=== PATIENT | female | born 1995 | race Hispanic/Latino ===

== ENCOUNTER 2016-06-05 11:20 | Inpatient (IN) | payer MEDICAID ==
[~2016-06-05] VITALS: Ht 148.6 cm; Wt 83.0 kg
[2016-06-05] MEDS ORDERED: Sodium Chloride LOK Flush 10 mL Syringe IVFLUSH PRN (13:25)
[2016-06-05] MEDS ORDERED: fentaNYL-PF 50 mCg/mL 2 mL Inj IVPUSH PRN (13:25)
[2016-06-05] MEDS ORDERED: Oxytocin 30 Units/500 mL LR 30 UNITS in IV Premix 1 EACH IV PRN (13:25)
[2016-06-05] MEDS ORDERED: Methylergonovine 0.2 mg/mL Inj IM PRN ×3 (13:25→21:55)
[2016-06-05] MEDS ORDERED: Hemorrhage Kit, Post Partum XX ONE ×3 (13:25→21:55)
[2016-06-05] MEDS ORDERED: Oxytocin 10 Unit/mL Inj IM PRN ×3 (13:25→21:55)
[2016-06-05] MEDS ORDERED: Lactated Ringer's 1,000 ML IV PRN (13:25)
[2016-06-05] MEDS ORDERED: Carboprost 250 mCg/mL Inj IM PRN ×3 (13:25→21:55)
--- NOTE | 2016-06-05 14:10 | HP ---
[address] [address] HISTORY AND PHYSICAL PATIENT: SAMANTHA PATRICK : 1995 MR#: [id number] ADMIT: 06/05/2016 JOB ID: [id number] CHIEF COMPLAINT: Contractions. HISTORY OF PRESENTING ILLNESS: This is a 21 years old, 2, para 1-0-0-1, at 38 weeks and 5 days based on expected date of delivery of June 14, 2016, based on last menstrual period and consistent with nine weeks five days ultrasound. Patient complicated with: 1. prior history of primary low transverse section for nonreassuring heart tones and failure to progress in 2010. 2. marginal cord insertion. 3. GERD. Patient presented to [facility] with complaint of contractions. Cervix found to be 2 cm, 75%, -2 station, intact. Previous exam yesterday, June 04, 2016, cervix was 1 cm, 50%, and -3. After reassessment and 1 hour of observation in the triage room, cervix was 2 cm, 80%, and -2. The patient was breathing through contractions. Patient denies loss of fluid. History of light vaginal bleeding when wiping. PAST GYNECOLOGIC HISTORY: Menarche at age 10. Regular menstrual cycles. Last Pap smear December 16, 2015, within normal limits. Denies history of abnormal Pap smears or STD. GC and chlamydia screen negative on December 16, 2015. PAST OBSTETRIC HISTORY: First was in 2010. Primary low transverse section at 40 weeks for failure to progress and nonreassuring heart tones. Weight 7 pounds 8 ounces. PAST MEDICAL HISTORY: Noncontributory. Patient denies history of asthma or hypertension. PAST SURGICAL HISTORY: One delivery in 2010. FAMILY HISTORY: Mother is healthy. Father has diabetes. Brother healthy. Sisters healthy. Twins positive history in aunt. Denies history of congenital or mental anomalies. MEDICATIONS: vitamins. ALLERGIES: No known drug allergies. SOCIAL: Denies alcohol, smoking, or illicit drug abuse. REVIEW OF SYSTEM: An 11-point review of system is negative except for the items mentioned in the history of presenting illness. PHYSICAL EXAMINATION: Blood pressure 136/76, heart rate 85, respiratory rate 18, temperature 36.7. General: Alert, oriented to time, place and person. HEAD: Normocephalic, atraumatic. Neck: Supple. Chest: Equal air entry bilaterally. No added sounds. Cardiovascular: RRR, S1 plus S2 plus zero. Abdomen: Gravid. No tenderness. Estimated weight 7-1/2 pounds. Cervical exam by triage room nurse at 1255 was 2, 80%, -2. Lower extremities: +1 edema bilaterally. LABORATORIES: labs, O positive, rubella immune, RPR nonreactive, hepatitis B surface antigen nonreactive, HIV nonreactive. Antibody screening negative. Hematocrit 41% at 24 weeks. screening negative. Pap smear within normal limits on December 16, 2015. Gonorrhea and chlamydia screen negative on December 16, 2015. Group B strep negative on May 22, 2016. Diabetes screening negative at 24 weeks, was 97. IMAGING: Ultrasound on January 23, 2016, was 20 weeks and 5 days. Anatomy within normal limits. Anterior placenta with no previa. Cord insertion eccentric, marginal. Ultrasound on November 10, 2015, was nine weeks and five days with an ALMAZ of June 09, 2016, consistent with last menstrual ALMAZ of June 14, 2016. Final ALMAZ is June 14, 2016. Growth ultrasound done June 04, 2016, growth at 20th percentile. Estimated weight 3185 g. Vertex presentation. Placenta position anterior without previa. ELIZA 7.3-8 cm. ASSESSMENT: This is a 21 years old, 2, para 1-0-0-1, at 38 weeks and 5 days based on estimated due date of June 14, 2016, based on last menstrual period consistent with nine week ultrasound. 1. Active labor. 2. History of previous low transverse section. 3. Desires trial of labor after section. Risks, benefits and alternatives of trial of labor after section versus elective repeat section were discussed with the patient in detail. Calculated success rate of vaginal after is 38%. Risks included, but not limited to, uterine rupture, increased risk of infection and bleeding with trial of labor after section with low calculated success rate explained. The patient desires trial of labor after section. Informed consent was signed. All questions were answered. Admission orders and labs were placed. Will continue to monitor. MTDD
[2016-06-05 14:23] LABS: Mean Corpuscular Hemoglobin 31.2 pg (27.0-35.0); Mean Corpuscular Volume 88.9 fL (81-100)
[2016-06-05] MEDS ORDERED: Lactated Ringer's 500 ML IV ONE (16:18)
[2016-06-05] MEDS ORDERED: Lactated Ringer's 1,000 ML IV SCH ×2 (16:18→21:49)
--- NOTE | 2016-06-05 16:18 | PCM.HPANE ---
Patient Data Surgeon Admitting Provider:Ines Buchanan MD Attending Provider:Ines Buchanan MD Primary Care Physician:Birgit Wilburn MD Other Provider:Braxton Baldersa Anesthesia Reason for Visit Pre Term Labor PRE TERM LABOR Ht/WT & BMI Body Mass Index Allergies Coded Allergies: Penicillins (Verified Allergy, Unknown, pt reports rash, 03/06/11) Medications Hypertension Medication: No Home Meds Incl Beta Erin: No History Hx of Heart Problems?: No Hx of Respiratory Problem?: No Hx Neurologic Problems?: No Hx of GI Problems?: Yes Gastrointestinal History: Positive for:: Heartburn Female Hx: Positive for:: Currently Hx Surgeries?: No Smoking Status: Never Smoker Stop/Bang Treated for Sleep Apnea?: No Do You Have a CPAP Machine?: No WILMA Risk Assessment: Low Risk, <3 Yes Risk Assessment Category Category 1A: Patient has history of documented sleep apnea, and HAS NOT received any narcotic, sedative or anesthesia administration during this stay. Category 1B: Patient has history of documented sleep apnea, and HAS received any narcotic , sedative or anesthesia administration during this stay Category 2: Patient has SUSPECTED Obstructive Sleep Apnea, and HAS received any narcotic , sedative or anesthesia administration during this stay. Category 3: Patient has SUSPECTED Obstructive Sleep Apnea and HAS NOT received narcotic, sedative or anesthesia administration during this stay. Category 4: Outpatient in Procedural Areas with known sleep apnea or who screen positive for High Risk via the STOP/BANG questionnaire. Exam Exam General Appearance: Oriented X3 HEENT/AIRWAY: MP 2 Lungs: Normal Air Movement Heart: Regular Rate/Rhythm Meds/Labs/Diagnostics Labs Test 06/05/16 14:10 06/05/16 14:40 White Blood Count 10.6th/mm3 (3.8-10.1) Red Blood Count 4.87mil/mm3 (3.90-5.20) Hemoglobin 15.2g/dL (12.0-15.6) Hematocrit 43.3% (35.0-46.0) Mean Corpuscular Volume 88.9fL (81-100) Mean Corpuscular Hemoglobin 31.2pg (27.0-35.0) Mean Corpuscular Hemoglobin Concent 35.1% (32.0-37.0) Red Cell Distribution Width 14.5% (12.3-15.4) Platelet Count 297bil/L (150-400) Blood Urea Nitrogen 11mg/dL (6-20) Creatinine 0.48mg/dL (0.57-1.00) Uric Acid 6.6mg/dL (2.6-7.2) Aspartate Amino Transf (AST/SGOT) 20U/L (0-50) Alanine Aminotransferase (ALT/SGPT) 15U/L (0-32) Plan Impression Patient chart reviewed, patient interviewed and anesthestic plan with risks, benefits, and alternatives discussed, and informed consent obtained. ASA Physical Status: ASA3 Severe Disease Anesthetic Plan: Epidural Bene/Risks/Altern/Consents: Yes HP Complete Prior to Induction: Yes Flo Garcia MD Jun 05, 2016 16:18
[2016-06-05] MEDS ORDERED: Atropine 1 mg/10 mL (Code) Syringe IVPUSH PRN (16:20)
[2016-06-05] MEDS ORDERED: fentaNYL 2 mCg/mL-Bupiv 0.125% 100 ML EPIDURAL SCH (16:20)
[2016-06-05] MEDS ORDERED: EPHEDrine Sulfate 50 mg/mL Inj IVPUSH PRN (16:20)
[2016-06-05] MEDS ORDERED: Ondansetron 2 mg/mL 2 mL Inj IVPUSH PRN (16:20)
[2016-06-05] MEDS ORDERED: PREN1TAB87 PO (16:50)
[2016-06-05] MEDS: Lactated Ringer's 1,000 ML IV SCH (21:53)
[2016-06-05] MEDS ORDERED: oxyCODONE-Acetamin 5-325 mg Tablet PO PRN (21:55)
[2016-06-05] MEDS ORDERED: Witch Hazel-Glycerin Pads TOPICAL PRN (22:45)
[2016-06-05] MEDS ORDERED: Benzocaine (Dermoplast) 20% 60 Gm Spray TOPICAL PRN (22:45)
[2016-06-05] MEDS ORDERED: LANOlin HPA 7 Gm Ointment TOPICAL PRN (22:45)
--- NOTE | 2016-06-06 00:45 | OP ---
[address] [address] OPERATIVE REPORT PATIENT: SAMANTHA PATRICK : 1995 MR#: [id number] ADMIT: 06/05/2016 JOB ID: [id number] DATE OF SURGERY: PREOPERATIVE DIAGNOSIS(ES): A 21-year-old, 2, para 1, at 38 weeks and 3 days. History of prior delivery. Comes in active labor. POSTOPERATIVE DIAGNOSIS(ES): A 21-year-old, 2, para 2, status post vaginal after section at 38 plus weeks. SURGEON: DELIVERY SUMMARY: The patient is a 21-year-old, para 2 now, who came to Labor and Delivery in the morning of June 05, 2016, with complaint of contractions. She with kallie every 2-3 minutes. heart rate tracing was reactive, category 1. Patient was 38 weeks and 3 days gestation. She had prior delivery secondary to nonreassuring heart rate, and she wanted to have a trial of labor after . On exam, she was 4 cm dilated, 80% effaced, -3 station, she was admitted for delivery. The patient was examined at around 5 p.m. when she spontaneously progressed to 6 cm dilation, 90% effacement, -2 station. She received an epidural at around the same time. Artificial rupture of membranes was performed. Clear amniotic fluid was seen. Patient progressed to full dilation at 7:13 p.m. No augmentation was necessary. She underwent spontaneous vaginal delivery at 8:38 p.m., delivered male with weight 3469 g, Apgars 8 at one minute and 9 at five minutes. Placenta was delivered at 8:45 p.m., was examined and found to be intact with three-vessel cord. The patient had a second-degree midline perineal laceration that was repaired with 2-0 Vicryl. ESTIMATED BLOOD LOSS: 200 mL.
[2016-06-06] MEDS: Lactated Ringer's 1,000 ML IV SCH ×2 (05:53→13:53)
[2016-06-06 07:33] LABS: Mean Corpuscular Hemoglobin 31.3 pg (27.0-35.0); Mean Corpuscular Volume 91.2 fL (81-100)
--- NOTE | 2016-06-06 09:19 | PCM.DIOB ---
Obstetrical Disch Instruction Date of Service: Jun 06, 2016 Dates of Hospitalization Date of Hospital Admission Jun 05, 2016 at 13:27 Providers Admitting Physician: Ines Buchanan MD Primary Care Physician: Birgit Wilburn MD Attending Physician: Ines Buchanan MD Discharge Diagnosis Discharge Diagnosis Status post successful Vaginal after section Problems: Diet Discharge Diet: No restrictions Activity Discharge Activity-General: Pelvic Rest for 6 weeks (no sex , no douching nor tampons) Dressing and Incisional Care Hygiene: May shower, Perineal care, Sitz bath Follow Up Plan Mid-level Provider (F9): Ines Buchanan MD Follow-up appointment: Weeks (two) Call your provider for: Fever or Chills, Shortness of breath, Heavy vaginal bleeding, Heavy bleeding, Epigastric pain, Excessive constipation, Vaginal discomfort, Red painful breasts, Other (headache, change in vision, leg swelling , pain or change in color. ) Ines Buchanan MD Jun 06, 2016 09:19
[2016-06-06] MEDS ORDERED: IBUP-1827 PO (09:20)
[2016-06-06] MEDS ORDERED: DOCU-41 PO (09:20)
[2016-06-06] MEDS ORDERED: OXYC1TAB24 PO (09:20)
--- NOTE | 2016-06-06 09:21 | PCM.DC.OB ---
Obstetrical Discharge Summary Date of Service Jun 06, 2016 Date of hospital admission Jun 05, 2016 at 13:27 Date of Discharge: Jun 06, 2016 Providers Admitting Physician: Rissa Pack MD Primary Care Physician: Birgit Wilburn MD Attending Physician: Rissa Pack MD Diagnosis at Time of Discharge Status post successful Vaginal after section Problems: Hospital Course: This is a 21 years old, 2, now para2-0-0-2, presented in active labor at 38 weeks and 5 days 1. Status post successful Vaginal after section at 06/05/16 at 20: 38 pm, see delivery note for details. COMPLICATED WITH: 1. Prior history of primary low transverse section for nonreassuring heart tones and failure to progress in 2010. 2. Marginal cord insertion. 3. GERD. 4. Obesity BMI 37 OUTCOME: Male with weight 3469 g, Apgars 8 at one minute and 9 at five minutes. DISCHARGE DAY EXAM: day number 1, patient is ambulating, tolerating regular diet without nausea or vomiting and voiding without difficulty. Pain was well controlled. No chest pain, no headache or change in vision. VS: 104/55 82 17 36.5 General: Alert, Oriented X3 Lungs: Clear to Auscultation, Clear to Percussion Heart: Regular Rate/Rhythm, Normal S1, Normal S2 Abdomen: Fundus firm Extremities: No tenderness/swelling, Edema 1+ Lochia: normal. LABS: CBC Test 06/06/16 07:07 White Blood Count 12.1th/mm3 (3.8-10.1) Red Blood Count 3.87mil/mm3 (3.90-5.20) Hemoglobin 12.1g/dL (12.0-15.6) Hematocrit 35.3% (35.0-46.0) Mean Corpuscular Volume 91.2fL (81-100) Mean Corpuscular Hemoglobin 31.3pg (27.0-35.0) Mean Corpuscular Hemoglobin Concent 34.3% (32.0-37.0) Red Cell Distribution Width 14.2% (12.3-15.4) Platelet Count 248bil/L (150-400) CMP Test 06/05/16 14:40 Blood Urea Nitrogen 11mg/dL Creatinine 0.48mg/dL Uric Acid 6.6mg/dL Aspartate Amino Transf (AST/SGOT) 20U/L Alanine Aminotransferase (ALT/SGPT) 15U/L labs: O positive, rubella immune, RPR nonreactive, hepatitis B surface antigen nonreactive, HIV nonreactive. Antibody screening negative. Hematocrit 41% at 24 weeks. screening negative. Pap smear within normal limits on December 16, 2015. Gonorrhea and chlamydia screen negative on December 16, 2015. Group B strep negative on May 22, 2016. Diabetes screening negative at 24 weeks, was 97. Disposition: home. Discharge Condition: stable. Diet Discharge Diet: No restrictions Activity Discharge Activity-General: Pelvic Rest for 6 weeks (no sex , no douching nor tampons) Dressing and Incisional Care Hygiene: May shower, Perineal care, Sitz bath Follow Up Plan Mid-level Provider (F9): Rissa Pack MD Follow-up appointment: Weeks (two) Call your provider for: Fever or Chills, Shortness of breath, Heavy vaginal bleeding, Heavy bleeding, Epigastric pain, Excessive constipation, Vaginal discomfort, Red painful breasts, Other (headache, change in vision, leg swelling , pain or change in color. ) Rissa Pack MD Docusate Sodium (Colace) 100 Mg Capsule 100 MG PO BID PRN PRN For Constipation Prescribed by: RISSA PACK MD Ibuprofen (Ibuprofen) 600 Mg Tablet 600 MG PO QID PRN PRN For Pain Prescribed by: RISSA PACK MD Vit W-Ca,Fe,FA(<1 mg) ( Vitamins) 1 Each Tablet 1 EACH PO DAILY (Reported) Last Taken: Unknown Dose on 06/04/16 oxyCODONE-Acetaminophen 5-325 mg ( oxyCODONE-Acetaminophen 5-325 mg) 1 Each Tablet 1 TAB PO Q4H PRN PRN For Pain Prescribed by: MD Chanel PATTERSON Omaima A MD Jun 06, 2016 09:21
== END 2016-06-06 22:00 | disposition home or self-care (01) | DRG 560 ==
LOC: FBCO 11:20 → FBC 13:27
PROVIDERS: ADMIT Obstetrics & Gynecology; ATTEND Obstetrics & Gynecology
PROC: 10E0XZZ Delivery of Products of Conception, External Approach (ICD-10-PCS; principal; 2016-06-05)
PROC: 0KQM0ZZ Repair Perineum Muscle, Open Approach (ICD-10-PCS; 2016-06-05)
PROC: 10907ZC Drainage of Amniotic Fluid, Therapeutic from Products of Conception, Via Natural or Artificial Opening (ICD-10-PCS; 2016-06-05)
DX: O70.1 Second degree perineal laceration during delivery (principal); Z37.0 Single live birth; O69.81X0 Labor and delivery complicated by cord around neck, without compression, not applicable or unspecified; Z3A.39 39 weeks gestation of pregnancy